=== PATIENT | male | born 1980 | race Caucasian/White ===

== ENCOUNTER 2022-06-18 18:23 | Emergency (ER) | payer BC, SELFPAY ==
[2022-06-18 18:24] VITALS: BP 135/95; PULSE 96; RESP 14; TEMP 36.8; O2SAT 97; BMI 41.8
--- NOTE | 2022-06-18 18:28 | RAD_ITS ---
STUDY: X-RAY - RIGHT SHOULDER REASON FOR EXAM: Male, 41 years old. Deformity. Fall onto right shoulder. Unable to move shoulder. TECHNIQUE: 2 view(s) of the shoulder. COMPARISON: None. FINDINGS: Normal glenohumeral articulation. There is widening of the AC joint, with displacement of the clavicle, consistent with a Type III acromioclavicular joint separation. Normal acromion. Normal humeral head and visualized proximal humerus. The soft tissue structures are unremarkable. Normal visualized pulmonary apex. RAD/Shoulder min 2 Views IMPRESSION: ADC separation without acute fracture or dislocation Electronically Signed: Yogesh Long DO at 18:59 EDT ,
--- NOTE | 2022-06-18 19:52 | EX.ED.UPPERE ---
HPI History of Present Illness HPI Narrative: Fell injuring his right shoulder. Chief Complaint: Upper Extremity Injury Informant: patient and spouse/S.O. Occured/Mechanism Mechanism/Context: Yes injury and Yes blunt trauma Onset/Context/Timing Onset: Today Context: Sudden Onset Timing: Continuous Quality of Pain: Sharp and Stabbing Current Severity: Severe Maximum Severity: Severe Associated Symptoms Associated Symptoms: Negative for Parasthesia, Weakness or Loss of Funtion Narrative Narrative: 41-year-old male no seen past medical history. [id number]. Was chasing his niece he fell to the ground injuring the top of his right shoulder. Instant pain when he fell. No prior surgery to his right shoulder or history. Denies any other complaints. Prior similar symptoms: No Recent Illness/Hospitalization: No PFSH PFSH Home Medications amoxicillin 875 mg-potassium clavulanate 125 mg tablet 875 mg PO Q12H ##20 05/16/15 [Rx Last Taken Unknown] oxycodone-acetaminophen 5 mg-325 mg tablet 1 - 2 tab PO Q4H PRN PRN Pain #20 tabs 05/16/15 [Rx Last Taken Unknown] hydrocodone-acetaminophen 5-325mg 5mg-325mg 1 tab PO Q4H PRN pain 7 days #20 tabs 06/18/22 [Rx Last Taken Unknown] Allergy/AdvReac Type Severity Reaction Status Date / Time No Known Allergies Allergy Verified 06/18/22 18:24 Surgical History History of ear surgery Social History Smoking Status: Former smoker ROS ROS ED ROS Narrative No recent illness. Review of Systems ROS Unobtainable: Denies due to encephalopathy Constitutional Constitutional ED: Denies chills Eyes Eyes: Denies blurry vision ENT ENT ED: Denies ear pain Cardiovascular Cardiovascular: Denies chest pain Respiratory/Chest Respiratory/Chest: Denies cough Gastrointestinal Gastrointestinal: Denies abdominal pain Genitourinary Genitourinary ED: Denies dysuria Musculoskeletal Musculoskeletal: Denies back pain Integumentary Denies abscess Neurologic Neurologic: Denies headache(s) Psychiatric Psychiatric: Denies anxiety Endocrine Endocrinology: Denies cold intolerance Hematologic/Lymphatic Hematologic/Lymphatic: Denies easy bleeding Allergic/Immunologic Allergic/Immunologic ED: Denies mouth swelling EXAM Physical Exam Narrative Exam Narrative: 41-year-old male complaining of right shoulder pain. H EENT exam unremarkable atraumatic. Neck nontender. Trachea midline. Back nontender. Chest nontender. Lungs are clear. Heart regular rhythm no murmur. Abdomen soft nontender. Ribs nontender. Pelvic girdle intact. Left upper both lower extremities nontender full range of motion normal motor strength and sensation. 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 Strong radial pulse. Right wrist forearm and elbow are nontender. He is primarily tender in the right shoulder at his AC joint. Decreased range of motion due to pain. Back nontender. Neurologically is awake and alert. Const Vital Signs: 06/18/22 18:24 Temperature 98.2 F Temperature Source Temporal Pulse Rate 96 Respiratory Rate 14 Blood Pressure 135/95 H Blood Pressure Mean 108 Pulse Ox 97 Oxygen Delivery Method Room Air Positive well nourished, well developed and obese; Negative for cachectic, contractures or unkempt General Appearance ED: well developed; Negative for unkempt, cachectic, contractures, cyanotic, diaphoretic or NAD Nutritional Appearance: obese; Negative for cachectic HEENT Reports moist mucous membranes normocephalic and atraumatic; Negative for trauma or tenderness Eyes PERRL and EOMs intact bilaterally Neck full ROM and supple General: Negative for tenderness Lymph Lymphatic: Negative for other Chest Wall inspection of chest normal and palpation of chest normal Chest: Negative for other Resp normal respiratory effort and clear to auscultation bilaterally Effort and Inspection: Negative for pain with movement Auscultation: Negative for rales, rhonchi or wheezes Cardio regular rate, regular rhythm, S1 normal heart sound, S2 normal heart sound and no murmurs Rate: Negative for bradycardia or tachycardic Rhythm: Negative for abnormal rhythm GI non-tender, non-distended and no masses Inspection: Negative for abdominal distention Auscultation: normoactive bowel sounds Palpation: soft; Negative for guarding Bladder / Kidney Exam: No other Back/Spine no CVA tenderness General Back: Negative for CVA tenderness Cervical Spine: Negative for cervical spine tenderness Thoracic Spine / Upper Back: Negative for thoracic spinal tenderness Lumbar Spine / Lower Back: Negative for lumbar spinal tenderness Extremity normal to inspection and full ROM Extremity Narrative: Except tender right shoulder primarily at the AC joint. Concerning for an AC separation. No gross bony deformity. Decreased range of motion of the right shoulder due to pain. Right hand neurovascular intact. Normal meat packager. Normal touch sensation. Normal radial pulse. General Extremety ED: Negative for edema General Extremity: Negative for edema Neuro oriented x3, CN's II-XII intact bilaterally, moves all extremities, no focal motor deficits and no sensory deficits noted Sensorium / Orientation: alert, oriented to person, oriented to place and oriented to time; Negative for orientation impaired, lethargic or stuporous Motor Exam: strength 5/5 throughout Psych mental status grossly normal Appearance: Negative for unkempt Attitude: No agitated Mood & Affect: Negative for depressed, anxious or tearful Skin General Skin Exam: Negative for petechiae Lesions: no lesions Rashes: no rashes Trauma: no lacerations or abrasions MDM MDM MDM Narrative Medical decision making narrative: Patient fell injuring his right shoulder. Right shoulder x-ray shows an AC separation. He will be given [address] pain[address] Sling. Follow-up with orthopedics. Dr. Christian Corbin is on-call for orthopedics. Lab Data Labs: Right order x-ray 3 views interpreted by myself and the radiologist shows a AC separation of the right shoulder. No fracture or dislocation noted. Radiography Diagnostic Testing: Clinical Impression(s) from Imaging Studies Shoulder X-Ray 06/18/22 18:28 IMPRESSION: ADC separation without acute fracture or dislocation Electronically Signed: Yogesh Long DO at 18:59 EDT Reading Location ID and State: [address] [place] [address] Tel [phone], Service support , Discharge Plan Triage Chief Complaint: Upper Extremity Injury ED Provider: Alexx Brown Dx/Rx/DC Orders Clinical Impression: Fall, AC separation Instructions: Treatment for Shoulder Separation Prescriptions: New hydrocodone-acetaminophen 5-325 mg tablet 1 tab PO Q4H PRN (Reason: pain) 7 Days Qty: 20 0RF No Action oxycodone-acetaminophen 1 TABLET tablet 1 - 2 tab PO Q4H PRN PRN (Reason: Pain) Qty: 20 0RF amoxicillin-pot clavulanate 875 MG tablet 875 mg PO Q12H Qty: 20 0RF Primary Care Provider: Marcellus Urbina Referrals: Marcellus Urbina MD [Primary Care Provider] - Christian Corbin DO [Med Staff - Active Staff] - As soon as possible Activity Restrictions/Additional Instructions: Ice to your right shoulder. Sling on except when bathing or when sleeping. [address] for pain. May also use Motrin. You have a AC separation your right shoulder. Follow-up with orthopedic surgery. Call tomorrow to get an appointment as soon as possible. Disposition Disposition: Home, Self Care
[2022-06-18] MEDS: HYDROcodone Bitartrate/Apap 5/325 Tablet PO (19:59)
== END 2022-06-18 20:56 | disposition home or self-care (01) ==
PROVIDERS: Emergency Provider Emergency Medicine; PCP Family Medicine; Visit Provider Emergency Medicine
DX: S43.50XA Sprain of unspecified acromioclavicular joint, initial encounter (principal); Z87.891 Personal history of nicotine dependence; W01.0XXA Fall on same level from slipping, tripping and stumbling without subsequent striking against object, initial encounter
CPT/HCPCS: 73030; 99283

== ENCOUNTER 2023-04-09 08:30 | Emergency (ER) | payer SELFPAY ==
[2023-04-09 08:32] VITALS: BP 146/105; PULSE 87; RESP 16; TEMP 36.4; O2SAT 97; BMI 43.0
--- NOTE | 2023-04-09 08:43 | EX.ED.DYSGE1 ---
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 No syncopal episodes no prodromal chest pains or shortness of breath. No nausea or vomiting. Reported last about 10 minutes he denies room spinning or spinning himself. He was not sweaty. His work thought he should get checked out. Currently asymptomatic he ambulated to the department. Denies past med history. Tobacco history. Denies family history of sudden heart . Mother has history of coronary disease. Denies recent vomiting diarrhea. Denies illicit drugs. Denies active alcohol use and none yesterday. Prior similar symptoms: Yes PFSH PFSH Home Medications amoxicillin 875 mg-potassium clavulanate 125 mg tablet 875 mg (0.875 x 875-125 mg) PO Q12H ##20 05/16/15 [Rx Last Taken Unknown] oxycodone-acetaminophen 5 mg-325 mg tablet 1 - 2 tab PO Q4H PRN PRN Pain #20 tabs 05/16/15 [Rx Last Taken Unknown] hydrocodone-acetaminophen 5-325mg 5mg-325mg 1 tab PO Q4H PRN pain 7 days #20 tabs 06/18/22 [Rx Last Taken Unknown] Allergy/AdvReac Type Severity Reaction Status Date / Time No Known Allergies Allergy Verified 06/18/22 18:24 Surgical History History of ear surgery Social History Smoking Status: Former smoker ROS ROS ED Constitutional Constitutional ED: Denies chills, fever(s) or sweats Eyes Eyes: Denies change in vision ENT ENT ED: Denies dysphagia or sore throat Cardiovascular Cardiovascular: Reports other Details: Lightheaded ; Denies chest pain, leg edema, palpitations or racing heartbeat Respiratory/Chest Respiratory/Chest: Denies cough, dyspnea or dyspnea on exertion Gastrointestinal Gastrointestinal: Denies abdominal pain, diarrhea, nausea or vomiting Genitourinary Genitourinary ED: Denies dysuria, hematuria or urinary frequency Musculoskeletal Musculoskeletal: Denies back pain, extremity pain or neck pain Integumentary Denies rash or wounds Neurologic Neurologic: Denies headache(s), paresthesias or weakness EXAM Physical Exam Const Vital Signs: 04/09/23 08:32 04/09/23 08:31 Temperature 97.5 F L Temperature Source Temporal Pulse Rate 87 Respiratory Rate 16 Respiratory Effort Normal Respiratory Pattern Normal Blood Pressure 146/105 H Blood Pressure Mean 118 Pulse Ox 97 Oxygen Delivery Method Room Air Positive well nourished and well developed General Appearance ED: well developed and NAD HEENT Reports moist mucous membranes normocephalic and atraumatic Eyes PERRL, EOMs intact bilaterally and conjunctivae normal General Eye ED: Yes normal appearance of both eyes Neck no lymphadenopathy and supple General: Negative for tenderness Chest Wall Chest: Negative for tenderness Resp normal respiratory effort and normal air movement Effort and Inspection: symmetric chest movement; Negative for respiratory distress Cardio regular rate, regular rhythm and no murmurs Peripheral Pulses: pulses 2+ throughout GI normal to inspection, nondistended, normoactive bowel sounds and non-tender Palpation: Negative for guarding or rebound tenderness present Back/Spine no CVA tenderness and no thoracic nor lumbar tenderness Extremity normal to inspection General Extremety ED: Negative for edema or tenderness General Extremity: Negative for edema Neuro oriented x3, CN's II-XII intact bilaterally and no sensory deficits noted Sensorium / Orientation: awake and alert Skin no rashes or lesions noted and no wounds MDM MDM MDM Narrative Medical decision making narrative: Interventions / MDM: Differential diagnosis: Cardiac dysrhythmia, near syncope Diagnosis considered but do not suspect: N/A My EKG interpretation: Sinus rate of 77, no ST or T wave changes QTc 461. Imaging independently reviewed and interpreted by myself: N/A External documents reviewed: N/A Test considered but not ordered:N/A ED course: Patient EKG normal no recent vomiting diarrhea for electrolyte concerns. Nonbloody stools concerns for anemia clinically not anemic. Do not feel further work-up is necessary as asymptomatic has been walking with no return of symptoms. Discharged outpatient follow-up. Denies Worker's Compensation claim. He will follow-up with PCP with return precautions. All questions were answered. Re-evaluation: stable Disposition discussed with patient/family/significant other: Patient Case discussed with consulting clinician: N/A This note was generated with One[employer] dictation software. It may contain incorrect words, spelling, and punctuation that were not noted in checking the note before signing. Discharge Plan Triage Chief Complaint: Dizziness ED Provider: Eron Manriquez Dx/Rx/DC Orders Clinical Impression: Vasovagal near syncope Instructions: ED Near-Fainting- Vagal Reaction Prescriptions: No Action oxycodone-acetaminophen 1 TABLET tablet 1 - 2 tab PO Q4H PRN PRN (Reason: Pain) Qty: 20 0RF amoxicillin-pot clavulanate 875 MG tablet 875 mg PO Q12H Qty: 20 0RF hydrocodone-acetaminophen 5-325 mg tablet 1 tab PO Q4H PRN (Reason: pain) 7 Days Qty: 20 0RF Primary Care Provider: Marcellus Urbina Referrals: Marcellus Urbina MD [Primary Care Provider] - 3-5 Days Disposition Disposition: Home, Self Care Discharge Date/Time: 04/09/23 09:17
== END 2023-04-09 09:17 | disposition home or self-care (01) ==
LOC: ED 08:59
PROVIDERS: Emergency Provider Emergency Medicine; PCP Family Medicine; Referring Provider Emergency Medicine; Visit Provider Emergency Medicine
DX: R55 Syncope and collapse (principal); R42 Dizziness and giddiness; Z87.891 Personal history of nicotine dependence
CPT/HCPCS: 93005; 99282

== ENCOUNTER 2024-05-19 10:55 | Emergency (ER) | payer BC, SELFPAY ==
[2024-05-19 10:56] VITALS: BP 176/82; PULSE 103; RESP 21; TEMP 35.7; O2SAT 98; BMI 37.7
--- NOTE | 2024-05-19 11:02 | EKG12_ITS ---
Test Reason : CP Blood Pressure : / mmHG Vent. Rate : 121 BPM Atrial Rate : 121 BPM P-R Int : 146 ms QRS Dur : 072 ms QT Int : 344 ms P-R-T Axes : 026 -41 057 degrees QTc Int : 488 ms Sinus tachycardia Left axis deviation Minimal voltage criteria for LVH, may be normal variant ( R in aVL ) Possible Anterior infarct (cited on or before 09-APR-2023) Abnormal ECG Confirmed by MARLENA ESQUEDA, JARETT ([id number]), scientific publications editor HAL CARIAS ([id number]) on 05/23/2024 8:43:38 AM Referred By: YANY Confirmed By:ISHMAEL MENDIOLA MD
--- NOTE | 2024-05-19 11:04 | EX.ED.DYSGE1 ---
HPI History of Present Illness Chief Complaint: Numb/Ting Narrative Narrative: 43-year-old male presents via EMS with shakiness, and lightheadedness. He was at work today, on break, and started feeling the symptoms. He relates history that at 9 PM yesterday, approximately 14 hours ago, his left arm felt strange, almost with numbness and tingling and he had a headache that lasted for about half an hour. Was more in the front. When this episode happened today, he denies any chest pain or back pain, no nausea or vomiting, but he states he broke out in a cold sweat, and denies shortness of breath. No leg swelling. He states that his mother passed at age 53, but she had problems with her heart, blood clots, and carcinoma. When she was driving home from chemotherapy, reportedly she had a cardiac arrest. He states he is starting to feel improved, but still feels a little shaky. He denies any significant past medical history, he does not take any medications. PFSH PFS Home Medications ?Medication ?Instructions ?Recorded ?Last Taken ?Type amoxicillin 875 mg-potassium 875 mg PO Q12H ##20 05/16/15 Unknown Rx clavulanate 125 mg tablet oxycodone-acetaminophen 5 mg-325 1 - 2 tab PO Q4H PRN PRN Pain #20 05/16/15 Unknown Rx mg tablet tabs hydrocodone-acetaminophen 5-325mg 1 tab PO Q4H PRN pain 7 days #20 06/18/22 Unknown Rx 5mg-325mg tabs Allergy/AdvReac Type Severity Reaction Status Date / Time No Known Allergies Allergy Verified 06/18/22 18:24 Surgical History History of ear surgery Social History Smoking Status: Former smoker ROS ROS ED ROS Narrative Constitutional: No fever, no chills. Broke out in a cold sweat today. Feels shaky. HEENT: No sore throat. No neck pain. No loss of vision. No rhinorrhea. Cardiovascular: No chest pain. No palpitations. No pedal edema. Respiratory: No cough, no shortness of breath. Abdominal: No abdominal pain. No nausea. No vomiting. Genitourinary: No dysuria. No hematuria. Musculoskeletal: No myalgias. No arthralgias. Neurologic: No headaches. No dizziness. Positive lightheadedness. Positive paresthesias of left arm yesterday. Skin: No rash. No change in color. Psychiatric: No depression. No anxiety. EXAM Physical Exam Narrative Exam Narrative: Afebrile. Vital signs noted. HEENT: Normocephalic. Atraumatic. PERRL, EOMI. Neck soft and supple. No point tenderness or step off. Cardiovascular: Positive tachycardia. No murmurs, rubs, or gallops appreciated. Respiratory: Mild tachypnea. Lungs clear to auscultation bilaterally. Gastrointestinal: Abdomen soft, nontender, with normoactive bowel sounds. No rebound or guarding. Neurological: Awake. Alert. Nonfocal, nonlateralizing. Skin: No rash. Normal color. No pallor. Musculoskeletal: No pedal edema. Full range of motion extremities. Const Vital Signs: 05/19/24 10:56 05/19/24 11:17 05/19/24 12:55 Temperature 96.2 F L Temperature Source Temporal Pulse Rate 103 H 92 Respiratory Rate 21 H 24 H Blood Pressure 176/82 H 148/107 H Blood Pressure Mean 113 120 Pulse Ox 98 98 Oxygen Delivery Method Room Air Room Air Room Air 05/19/24 14:00 Temperature Temperature Source Pulse Rate 98 Respiratory Rate 19 H Blood Pressure 157/113 H Blood Pressure Mean 127 Pulse Ox 98 Oxygen Delivery Method Room Air MDM MDM MDM Narrative Medical decision making narrative: Differential diagnosis includes but not limited to ACS versus hypertensive urgency versus dehydration versus electrolyte abnormality. I have low suspicion for pulmonary embolism because history and physical does not support that, his pulse ox is 98% on room air without evidence of hypoxia. EKG was obtained and interpreted by myself independently as normal sinus rhythm at 141 bpm without ectopy or acute ST changes. No STEMI. No significant change from EKG reviewed from April 09, 2023, except the rate was not as fast then. I reviewed his laboratory work and he has normal white count of 8.9, hemoglobin 15.1, hematocrit 44.8, platelet count normal at 197. Electrolyte panel is significant for chloride of 110 which I think is nonspecific, BUN of 21 and normal creatinine of 1.15, glucose appropriately elevated at 120, with a normal anion gap of 7. Magnesium normal at 2.4. D-dimer is negative at 0.27 so I have low suspicion for pulmonary embolism. Additionally, I do not think he has an aortic dissection because he does not have any back pain, no tearing sensation. His initial high-sensitivity troponin is 5. I reviewed his prior records as well and in 2022 he did have an episode of lightheadedness and shakiness, but presented to the emergency department when he was asymptomatic, after the episode had essentially resolved. Chest x-ray 1 view interpreted by myself independently shows no evidence of an acute process, no pneumonia or pneumothorax. I reviewed the radiology report which confirms my independent interpretation. Upon repeat examination, patient states he feels improved, however he still has elevated blood pressure. He is no longer tachycardic. I feel there is a strong stress and anxiety component to his elevated blood pressure, along with his symptomatology. He was administered Ativan 1 mg intravenously. Upon repeat examination, his blood pressure has been in the 140s systolic. He feels improved. I reviewed his second high-sensitivity troponin and it is 4, reassuring delta troponin. At this point in time, I feel he can be discharged to follow-up with his primary care provider. He would like referral to a new provider. He is to keep a log of his blood pressure. I do feel that this is probably stress related, and he does state that he has been under a lot of stress. Return instructions to the emergency department were reviewed. Disposition is discharged home in stable condition. History & Record Review Discussion w/independent historian: Patient Additional record(s) reviewed:: Prior ED visit Lab Data Attestation: I reviewed the patient's lab results. Labs: Laboratory Results - last 24 hr 05/19/24 05/19/24 11:06 13:07 WBC 8.9 RBC 5.03 Hgb 15.1 Hct 44.8 MCV 89.1 MCH 30.0 MCHC 33.7 RDW Std Deviation 40.8 RDW Coeff of [place] 12.4 Plt Count 197 MPV 10.1 Immature Gran % (Auto) 0.200 Neut % (Auto) 74.0 H Lymph % (Auto) 18.5 L [place] % (Auto) 6.1 Eos % (Auto) 0.6 Baso % (Auto) 0.6 Absolute Neuts (auto) 6.6 Absolute Lymphs (auto) 1.64 Nucleated RBC % 0 D-Dimer Quant (PE/DVT) 0.27 Sodium 140 Potassium 4.2 Chloride 110 H Carbon Dioxide 23.0 Anion Gap 7 BUN 21 H Creatinine 1.15 Estim Creat Clear Calc 108.32 Est GFR (MDRD) Af Amer 89 Est GFR (MDRD) Non-Af 74 BUN/Creatinine Ratio 18.3 Glucose 120 H Calcium 9.4 Magnesium 2.4 Troponin I High Sens 5 4 Radiography Diagnostic Testing: Clinical Impression(s) from Imaging Studies Chest X-Ray 05/19/24 11:15 IMPRESSION: No acute cardiopulmonary process identified. Electronically Signed: Veda Tariq MD at 12:12 EDT , Discharge Plan Triage Chief Complaint: Numb/Ting ED Provider: Suresh Conde Dx/Rx/DC Orders Clinical Impression: Lightheadedness, Shakiness, Elevated blood pressure reading, Stress Instructions: Causes and Effects of Stress, ED Dizziness, Uncertain Cause, ED Hypertension, To Be Confirmed, ED Hyperventilation Syndrome, ED Near-Fainting, Uncertain Cause Prescriptions: No Action oxycodone-acetaminophen 1 TABLET tablet 1 - 2 tab PO Q4H PRN PRN (Reason: Pain) Qty: 20 0RF amoxicillin-pot clavulanate 875 MG tablet 875 mg PO Q12H Qty: 20 0RF hydrocodone-acetaminophen 5-325 mg tablet 1 tab PO Q4H PRN (Reason: pain) 7 Days Qty: 20 0RF Primary Care Provider: Marcellus Urbina Referrals: Marcellus Urbina MD [Primary Care Provider] - 5-7 Days Giovanni Sheth MD [Med Staff - Active Staff] - As soon as possible Activity Restrictions/Additional Instructions: Keep an eye on her blood pressure. Return with chest pain, new or worsening symptoms. Print Language: Polish Disposition Disposition: Home, Self Care
[2024-05-19 11:12] LABS: Absolute Lymphocyte Count 1.64 X10^3/uL (0.83-4.51); Absolute Neutrophil Count 6.6 X10^3/uL (2.0-7.7); Basophil# 0.05 X10^3/uL; Basophil% 0.6 % (0-1); Eosinophil# 0.05 X10^3/uL; Eosinophils% 0.6 % (0-5); Hematocrit 44.8 % (40-54); Hemoglobin 15.1 g/dL (13.0-16.5); Lymphocyte # 1.64 X10^3/ul (0.83-4.51); Lymphocyte % 18.5 % (19-41); Mean Corp Hgb Conc 33.7 g/dL (32-36); Mean Corpuscular Volume 89.1 fL (80-94); Mean Platelet Vol. 10.1 fl (6.2-12.0); Monocyte# 0.54 X10^3/uL; Monocyte% 6.1 % (0-10); NRBC Flagged by Analyzer 0 % (0-5); Neutrophil # 6.56 X10^3/uL (2.7-7.7); Platelet Count 197 K/mm3 (150-450); RBC Distribution Width CV 12.4 % (11.6-14.6); RBC Distribution Width SD 40.8 fl (35.1-43.9); Red Blood Count 5.03 M/mm3 (4.6-6.2); White Blood Count 8.9 K/mm3 (4.4-11.0)
[2024-05-19] MEDS: Aspirin 81 MG TAB.CHEW 324 MG PO (11:13)
[2024-05-19] MEDS: 0.9% Normal Saline (1000mL) 1,000 ML 999 ML IV (11:14)
--- NOTE | 2024-05-19 11:15 | RAD_ITS ---
HISTORY: chest pain. TECHNIQUE: XR Chest 1 View. COMPARISON: 05/27/2007. FINDINGS: CARDIOMEDIASTINAL BORDERS: Cardiac silhouette within normal limits in size. Mediastinal contour unremarkable. LUNGS: Radiographically clear. Chronic low lung volumes. PLEURA: No pleural effusion or pneumothorax seen. OSSEOUS STRUCTURES: Spinal osteophytes present. RAD/Chest 1 View (Portable) IMPRESSION: No acute cardiopulmonary process identified. Electronically Signed: Veda Tariq MD at 12:12 EDT ,
[2024-05-19 11:30] LABS: Anion Gap 7 (5-15); BUN 21 mg/dL (7-18); BUN/Creat Ratio 18.3 RATIO (10-20); Calcium,Total 9.4 mg/dL (8.5-10.1); Chloride 110 mmol/L (98-107); Creatinine, Serum 1.15 mg/dL (0.70-1.30); EST Glomerular Filtration Rate 74 mL/min (>60); Est Glom Filt Rate - Afr Amer 89 mL/min (>60); Estimated Creatinine Clearance 108.32 ml/min; Glucose 120 mg/dL (74-106); Magnesium 2.4 mg/dL (1.6-2.6); Potassium 4.2 mmol/L (3.5-5.1); Sodium Level 140 mmol/L (136-145); Troponin-I HS (w/2H Reflex) 5 pg/mL (3.0-78.0)
[2024-05-19 12:01] LABS: D-Dimer Quantitative (DVT/PE) 0.27 FEU/ug/m (0.27-0.49)
[2024-05-19] MEDS: LORazepam 2 MG/ML Syringe 1 MG IV (12:24)
[2024-05-19 12:55] VITALS: BP 148/107; PULSE 92; RESP 24; O2SAT 98
[2024-05-19 13:08] LABS: Reflex Troponin-HS? (from REC) Y
[2024-05-19 13:48] LABS: Troponin-I HS 4 pg/mL (3.0-78.0)
[2024-05-19 14:00] VITALS: BP 157/113; PULSE 98; RESP 19; O2SAT 98
[2024-05-19 14:18] VITALS: BP 154/113; PULSE 87; RESP 20; TEMP 36.7; O2SAT 100
== END 2024-05-19 14:19 | disposition home or self-care (01) ==
PROVIDERS: Emergency Provider Emergency Medicine; PCP Family Medicine; Visit Provider Emergency Medicine
DX: R42 Dizziness and giddiness (principal); R25.1 Tremor, unspecified; R03.0 Elevated blood-pressure reading, without diagnosis of hypertension; F43.0 Acute stress reaction; Z87.891 Personal history of nicotine dependence; Z82.49 Family history of ischemic heart disease and other diseases of the circulatory system
CPT/HCPCS: 71045; 80048; 83735; 84484; 85025; 85379; 93005; 96361; 96374; 99284; J7030; A4216